=== PATIENT | male | born 1940 | race Caucasian/White ===

== ENCOUNTER 2024-01-08 13:17 | Emergency (ER) | payer OTHER ==
[~2024-01-08] VITALS: Ht 175.3 cm; Wt 104.5 kg
[2024-01-08] MEDS ORDERED: GABA-282 PO (13:29)
[2024-01-08] MEDS ORDERED: LISI10TA22 PO (13:29)
[2024-01-08] MEDS ORDERED: PRAV40TA2 PO (13:29)
[2024-01-08] MEDS ORDERED: ATEN50TA2 PO (13:29)
[2024-01-08] MEDS ORDERED: METF-838 PO (13:29)
[2024-01-08] MEDS ORDERED: FURO20TA2 PO (13:29)
[2024-01-08] MEDS ORDERED: HYDR-3490 PO (13:29)
[2024-01-08] MEDS: ONDANSETRON 4MG 2ML VIAL IV ONE (13:54)
[2024-01-08] MEDS ORDERED: ISOVUE-370 76% 100ML VIAL As Ordered ONE (14:05)
[2024-01-08 14:13] LABS: BASO # 0.1 10^3/uL (0.0-0.2); BASO % 0.9 % (0.0-1.0); EOS # 0.6 10^3/uL (0.0-0.5); EOS % 5.5 % (0.0-3.0); HEMATOCRIT 34.4 % (42.0-52.0); HEMOGLOBIN 11.7 g/dl (13.5-17.5); LYMPH # 2.1 10^3/uL (1.5-5.0); LYMPH % 20.6 % (24.0-44.0); MEAN CORPUSCULAR HEMOGLOBIN 31.4 pg (27.0-33.0); MEAN CORPUSCULAR VOLUME 92.2 fl (80.0-96.0); MONO # 0.8 10^3/uL (0.0-0.8); MONO % 8.1 % (2.0-8.0); NEUTROPHILS # 6.6 10^3/uL (1.5-8.5); NEUTROPHILS % 64.4 % (36.0-66.0); PLATELET COUNT, AUTOMATED 309 10^3/uL (150-450); RED BLOOD COUNT 3.73 10^6/uL (4.30-6.10); WHITE BLOOD COUNT 10.3 10^3/uL (4.0-10.0)
[2024-01-08] MEDS: diazePAM 10MG/2ML SYRINGE IV ONE (14:59)
[2024-01-08] MEDS: METOCLOPRAMIDE INJ 10MG/2ML VIAL IV ONE (14:59)
[2024-01-08] MEDS ORDERED: PERCTAB2 PO (15:44)
[2024-01-08] MEDS ORDERED: HOME MED LIST COMPLETE! XX SCH (15:45)
[2024-01-08] MEDS: MECLIZINE 25 MG TABLET PO ONE (17:56)
[2024-01-08 20:25] VITALS: BP 128/60; TEMP 98.5; O2SAT 96
== END 2024-01-08 20:26 | disposition home or self-care (01) ==
LOC: EDBD 13:17 → M ED 13:17
DX: H81.10 Benign paroxysmal vertigo, unspecified ear (principal); I25.10 Atherosclerotic heart disease of native coronary artery without angina pectoris; I10 Essential (primary) hypertension; E11.9 Type 2 diabetes mellitus without complications; E78.5 Hyperlipidemia, unspecified; E66.01 Morbid (severe) obesity due to excess calories; K21.9 Gastro-esophageal reflux disease without esophagitis; K57.92 Diverticulitis of intestine, part unspecified, without perforation or abscess without bleeding; Z95.5 Presence of coronary angioplasty implant and graft; Z88.1 Allergy status to other antibiotic agents
CPT/HCPCS: 70450; 70496; 70498; 70551; 80047; 84484; 85025; 93005; 93041; 94760; 96374; 96375; 99285; J2405; J2765; J3360; Q9967